=== PATIENT | female | born 1970 | race Caucasian/White ===

== ENCOUNTER → 2024-06-10 08:51 | Outpatient (REF) | payer OTHER, SELFPAY | LOC: RAD 08:51 | PROVIDERS: ATTENDING PHYSICIAN Orthopaedic Surgery Hand Surgery; FAMILY PHYSICIAN Internal Medicine | DX: M77.11 Lateral epicondylitis, right elbow (principal); M25.521 Pain in right elbow | CPT/HCPCS: 73200 ==

== ENCOUNTER 2024-06-27 10:39 | Outpatient (RCR) | payer OTHER, SELFPAY | END 2024-06-27 23:59 | disposition home or self-care (01) | LOC: ROT 10:39 | PROVIDERS: ATTENDING PHYSICIAN Orthopaedic Surgery Hand Surgery; FAMILY PHYSICIAN Internal Medicine | DX: M25.521 Pain in right elbow (principal); Z73.6 Limitation of activities due to disability; S52.121D Displaced fracture of head of right radius, subsequent encounter for closed fracture with routine healing | CPT/HCPCS: 97010; 97166; 97535 ==

== ENCOUNTER 2024-08-08 16:59 | Outpatient (RCR) | payer OTHER, SELFPAY | END 2024-08-08 23:59 | disposition home or self-care (01) | LOC: ROT 16:59 | PROVIDERS: ATTENDING PHYSICIAN Orthopaedic Surgery Hand Surgery; FAMILY PHYSICIAN Internal Medicine | DX: M25.521 Pain in right elbow (principal); Z73.6 Limitation of activities due to disability | CPT/HCPCS: 97010; 97110; 97140 ==

== ENCOUNTER 2024-08-22 09:53 | Outpatient (RCR) | payer OTHER, SELFPAY | END 2024-08-22 23:59 | disposition home or self-care (01) | LOC: ROT 09:53 | PROVIDERS: ATTENDING PHYSICIAN Orthopaedic Surgery Hand Surgery; FAMILY PHYSICIAN Internal Medicine | DX: M25.521 Pain in right elbow (principal); Z73.6 Limitation of activities due to disability; S52.124D Nondisplaced fracture of head of right radius, subsequent encounter for closed fracture with routine healing | CPT/HCPCS: 97010; 97110 ==

== ENCOUNTER → 2025-08-03 14:41 | Outpatient (REF) | payer OTHER, SELFPAY | LOC: WDC 14:41 | PROVIDERS: ATTENDING PHYSICIAN Internal Medicine | DX: Z00.00 Encounter for general adult medical examination without abnormal findings (principal); Z13.820 Encounter for screening for osteoporosis; Z12.31 Encounter for screening mammogram for malignant neoplasm of breast | CPT/HCPCS: 77063; 77067; 77080 ==